=== PATIENT | male | born 1935 | race Caucasian/White ===

== ENCOUNTER 2016-08-18 09:33 | Outpatient (CLI) | payer MEDICARE, BC ==
[~2016-08-18] VITALS: Ht 180.3 cm; Wt 80.9 kg
[~2016-08-18 09:33] MED LIST: ASPIRIN E.C. 8181 MG PO; GLUCOSAMINE 1000; HCTZ 25MG TAB25 MG PO; HYTRIN10 M1 PO; LIPITOR 80MG80 MG PO; LOPRESSOR 225 MG/TAB PO; MULTI VITAMINS1 TAB PO; NEURONTIN100 MG/CAP PO; PLAVIX 75MG TAB75 MG PO; PRAVACHOL80 MG; PRILOSEC 20MG20 MG PO
[2016-08-18 10:17] VITALS: BP 129/62; PULSE 48; TEMP 98.2
[2016-08-18] MEDS ORDERED: LIPITOR 80MG80 MG PO (10:28)
[2016-08-18] MEDS ORDERED: PLAVIX 75MG TAB75 MG PO (10:28)
[2016-08-18] MEDS ORDERED: LOPRESSOR 550 MG/TAB PO (10:29)
[2016-08-18] MEDS ORDERED: RESTORIL 1515 MG/CAP PO (10:30)
[2016-08-18] MEDS ORDERED: FLOMAX 0.40.4 MG/CAP PO (10:30)
[2016-08-18] MEDS ORDERED: ULTRAM 50MG TAB50 MG PO (10:30)
[2016-08-18] MEDS ORDERED: ASPIRIN 81M81 MG/TA2 PO (10:31)
[2016-08-18] MEDS ORDERED: GLUCOSAMINE & C1 CA1 PO (10:31)
[2016-08-18 12:18] VITALS: BP 178/87; PULSE 53
== END 2016-08-18 15:40 | disposition home or self-care (01) ==
LOC: COL.CAR 09:33
DX: S32.019A Unspecified fracture of first lumbar vertebra, initial encounter for closed fracture (principal); I25.10 Atherosclerotic heart disease of native coronary artery without angina pectoris; I73.9 Peripheral vascular disease, unspecified; Z95.1 Presence of aortocoronary bypass graft; Z79.01 Long term (current) use of anticoagulants
CPT/HCPCS: J2250; J3010; J7120